=== PATIENT | male | born 1985 | race Caucasian/White ===

== ENCOUNTER 2018-01-03 18:06 | Emergency (ER) | payer OTHER ==
[~2018-01-03] VITALS: Ht 185.4 cm; Wt 99.8 kg
[2018-01-03] MEDS ORDERED: SYNTHROID88 MCG (18:17)
== END 2018-01-03 23:00 ==
LOC: ER 18:06
DX: R10.813 Right lower quadrant abdominal tenderness (principal); M62.830 Muscle spasm of back; K76.0 Fatty (change of) liver, not elsewhere classified